=== PATIENT | male | born 1985 | race Caucasian/White ===

== ENCOUNTER → 2018-10-14 | Outpatient (CLI) | payer OTHER ==
--- NOTE | 2018-10-14 10:15 | RADIOLOGY IMAGING REPORT ---
FACILITY: [facility] PATIENT NAME: Cam Brown : 1985 MR: [id number] V: [id number] EXAM DATE: ORDERING PHYSICIAN: KAVITA ROCHA TECHNOLOGIST: Location: [facility] - [place] Patient: Cam Brown : 1985 Visit/Account:[id number] Date of Sevice: 10/14/2018 TESTICULAR Indication: Left testicular mass Comparison: None Findings: Right testicle demonstrates homogeneous echotexture without evidence of mass. Right testicle measure s 5.1 x 2.1 x 3.3 cm. Left testicle demonstrates homogeneous echotexture without evidence of mass. The left testicle measu res 5.1 x 2.1 x 2.8 cm. There is normal color flow and Doppler waveform in both testis. Small right and left-sided hydrocele is seen. No evidence of right or left varicocele. There is a small right-sided epididymal head cyst, 4 mm. Impression: 1. Overall normal scrotal ultrasound. There is no suspicious mass. 2. Small 4 mm epididymal head cyst right epididymis. 3. Small bilateral hydroceles. Report Dictated By: Larry Peng at 10/14/2018 10:06 AM Report E-Signed By: Larry Peng at 10/14/2018 10:12 AM WSN:[id number]
== END ==
LOC: US 08:52
PROVIDERS: ATTEND Nurse Practitioner Family
DX: N50.3 Cyst of epididymis (principal); N43.3 Hydrocele, unspecified
CPT/HCPCS: 76870